=== PATIENT | female | born 1970 | race Two or more races ===

== ENCOUNTER 2021-12-10 19:34 | Emergency (ER) | payer SELFPAY ==
[2021-12-10] MEDS ORDERED: Ketorolac 30 MG/ML SDV IVPUSH ONE (20:12)
[2021-12-10] MEDS ORDERED: Sodium Chloride 0.9% 10 ML Syringe FLUSH PRN (20:12)
[2021-12-10] MEDS ORDERED: Metoclopramide 10 MG/2 ML SDV IVPUSH ONE (20:12)
[2021-12-10] MEDS ORDERED: diphenhydrAMINE 50 MG/ML SDV IVPUSH ONE (20:12)
[2021-12-10] MEDS ORDERED: Sodium Chloride 0.9% 1,000 ML IV ONE (20:18)
== END 2021-12-10 22:31 | disposition home or self-care (01) ==
LOC: KA.ED 19:34
DX: G43.909 Migraine, unspecified, not intractable, without status migrainosus (principal); E66.9 Obesity, unspecified; Z68.34 Body mass index [BMI] 34.0-34.9, adult
CPT/HCPCS: 96374; 96375; 99283; J1200; J1885; J2765; J7030